=== PATIENT | male | born 1975 | race Caucasian/White ===

== ENCOUNTER 2018-03-22 16:53 | Emergency (ER) | payer BC, MEDICAID, OTHER ==
[~2018-03-22] VITALS: Ht 180.3 cm; Wt 104.1 kg
[~2018-03-22 16:53] MED LIST: PROM25SU8 PO; Z.0.NO CURRENT MEDS
[2018-03-22 16:57] VITALS: BP 140/71; PULSE 75; RESP 17; TEMP 98.3; O2SAT 99
[2018-03-22] MEDS ORDERED: DIAZEPAM 5 MG TAB PO ONE (17:15)
[2018-03-22] MEDS ORDERED: KETOROLAC TROMETHAMINE 60 MG/2 ML (IM) VIAL IM ONE (17:15)
--- NOTE | 2018-03-22 17:45 | RADRPT ---
EXAM DATE: 03/22/2018 5:38 PM EDT AGE/SEX: 43 years / Male INDICATIONS: Patient complains of lower back pain status post fall doing tree work two days ago. CLINICAL DATA: This is the patient's initial encounter. Patient reports that signs and symptoms have been present for 2 days and indicates a pain score of 8/10. MEDICAL/SURGICAL HISTORY: None. None. COMPARISON: No prior [facility] exams available for comparison. FINDINGS: The vertebral bodies are in normal alignment without evidence of compression deformity Bone density is normal for age. Soft tissues are grossly intact. CONCLUSION: Negative examination. Electronically signed by: Michael Morfin MD 03/22/2018 5:43 PM EDT
[2018-03-22] MEDS ORDERED: KETO10 PO (18:02)
[2018-03-22] MEDS ORDERED: ROBA750T PO (18:02)
--- NOTE | 2018-03-22 18:02 | PD ---
HPI Chief Complaint: Back/ Neck Pain or Injury Time Seen by Provider: 17:10 Travel History International Travel<30 days: No Contact w/Intl Traveler<30days: No Traveled to known affect area: No History of Present Illness HPI This is a 43-year-old male here with left low back pain that radiates into the leg 1 day. 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 He reports he fell onto his back. No head injury loss of consciousness. He is not anticoagulated. He denies fever, incontinence, saddle anesthesia, paresthesia or weakness of extremities. He is ambulatory. Symptoms are unrelieved by [facility] Past Medical History Medical History: Denies Significant Hx Diminished Hearing: No Tetanus Vaccination: Unknown Past Surgical History Abdominal Surgery: Yes ("FATTY LUMPS" REMOVED FROM ABDOMEN) Social History Alcohol Use: No Tobacco Use: No Substance Use: No Allergies-Medications (Allergen,Severity, Reaction): Coded Allergies: No Known Allergies (Verified Adverse Reaction, Unknown, 03/22/18) Reported Meds & Prescriptions Reported Meds & Active Scripts Active Robaxin (Methocarbamol) 750 Mg Tab 750 Mg PO QID Ketorolac (Ketorolac Tromethamine) 10 Mg Tab 10 Mg PO TID Review of Systems Except as stated in HPI: all other systems reviewed are Neg General / Constitutional: No: Fever Eyes: No: Visual changes HENT: No: Headaches Cardiovascular: No: Chest Pain or Discomfort Respiratory: No: Shortness of Breath Gastrointestinal: No: Abdominal Pain Genitourinary: No: Dysuria Skin: No Rash Neurologic: No: Weakness Physical Exam Narrative GENERAL: Alert and well-appearing 23-year-old female SKIN: Warm and dry. HEAD: Atraumatic. Normocephalic. EYES: Pupils equal and round. No scleral icterus. No injection or drainage. ENT: No nasal bleeding or discharge. Mucous membranes pink and moist. NECK: Trachea midline. No cervical midline tenderness. CARDIOVASCULAR: Regular rate and rhythm. RESPIRATORY: No accessory muscle use. Clear to auscultation. Breath sounds equal bilaterally. GASTROINTESTINAL: Abdomen soft, non-tender, nondistended. MUSCULOSKELETAL: Extremities without clubbing, cyanosis, or edema. No obvious deformities. No tenderness of the left lower extremity. Negative straight leg raise. NEUROLOGICAL: Awake and alert. No obvious cranial nerve deficits. Motor grossly within normal limits. Five out of 5 muscle strength in the arms and legs. Ambulating with a steady gait BACK: No CVA tenderness. +TTP generalized low lumbar region including the lumbar spine and lumbar paravertebral musculature. No step-off deformity of the spine. Tenderness over the left sacroiliac region. Data Data Last Documented VS Vital Signs Date Time Temp Pulse Resp B/P (MAP) Pulse Ox O2 Delivery O2 Flow Rate FiO2 03/22/18 16:57 98.3 75 17 140/71 (94) 99 Orders Orders Spine, Lumbar Comp W/Obliq (03/22/18 ) Ketorolac Inj (Toradol Inj) (03/22/18 17:15) Diazepam (Valium) (03/22/18 17:15) MDM Medical Decision Making Medical Screen Exam Complete: Yes Emergency Medical Condition: Yes Differential Diagnosis Lumbar strain versus lumbar fracture versus sciatica Narrative Course 43-year-old male here with low back pain consistent with sciatica. Lumbar spine x-rays negative for fracture. He has a normal neurologic exam. He has normal strength and sensation in lower extremities. He was given a shot of Toradol and Valium and reports symptom improvement. He will be discharged home with similar medications. Diagnosis Primary Impression: Lumbar strain Qualified Codes: S39.012A - Strain of muscle, fascia and tendon of lower back , initial encounter Referrals: Primary Care Physician Additional Instructions: Medication as directed. Light stretching. Ice and/or heat for comfort Scripts Tramadol (Ultram) 50 Mg Tab 50 MG PO Q6H Y for PAIN, #12 TAB 0 Refills Prov: Rosanna Ramos 03/22/18 Methocarbamol (Robaxin) 750 Mg Tab 750 MG PO QID for Muscle Spasm, #12 TAB 0 Refills Prov: Rosanna Ramos 03/22/18 Ketorolac (Ketorolac) 10 Mg Tab 10 MG PO TID for Pain Management, #12 TAB 0 Refills Prov: Rosanna Ramos 03/22/18 Disposition: 01 DISCHARGE HOME Condition: Stable Rosanna Ramos Mar 22, 2018 18:02
[2018-03-22] MEDS ORDERED: TRAM50 PO (18:04)
== END 2018-03-22 18:24 | disposition home or self-care (01) ==
LOC: PHEFT 16:53
DX: S39.012A Strain of muscle, fascia and tendon of lower back, initial encounter (principal); W17.89XA Other fall from one level to another, initial encounter; Z79.899 Other long term (current) drug therapy
CPT/HCPCS: 72110; 96372; 99283; J1885